=== PATIENT | male | born 1970 | race African-American/Black ===

== ENCOUNTER 2020-07-13 13:56 | Emergency (ER) | payer MEDICAID ==
[~2020-07-13] VITALS: Ht 175.3 cm; Wt 108.8 kg
[2020-07-13] MEDS ORDERED: IBUPROFEN 600MG TABLET PO ONE (15:15)
[2020-07-13] MEDS ORDERED: SODIUM CHLORIDE 0.9% 1,000 ML IV ONE (15:15)
[2020-07-13 18:13] LABS: BASOPHILS % 0.7 % (0.0-2.0); EOSINOPHILS % 2.7 % (0.0-5.0); HEMATOCRIT. 44.6 % (42.0-52.0); LYMPHOCYTES % 39.7 % (20.0-50.0); MEAN CORPUSCULAR HEMOGLOBIN 25.4 pg (28.0-32.0); MEAN CORPUSCULAR VOLUME 75.7 fL (80.0-94.0); MEAN PLATELET VOLUME 8.3 fl (7.4-10.4); MONOCYTES % 8.5 % (2.0-8.0); NEUTROPHILS % 48.4 % (40.0-76.0); PLATELET 263 x1000/uL (130-400); RED CELL DISTRIBUTION WIDTH 15.7 % (11.6-14.6)
[2020-07-13 18:18] LABS: CHLORIDE 106 mEq/L (98-107)
[2020-07-13 18:20] LABS: PROTHROMBIN TIME 10.7 sec (9.6-11.0)
[2020-07-13] MEDS: ALBUTEROL (0.083%) 2.5MG/3ML NEB HHN SCH (18:30)
[2020-07-13] MEDS ORDERED: ALBUTEROL (0.083%) 2.5MG/3ML NEB ONE (18:37)
[2020-07-13 19:59] LABS: CLARITY URINE CLEAR (CLEAR); COLOR URINE YELLOW (YELLOW); KETONES URINE 1+ (NEGATIVE); LEUKOCYTE ESTERASE URINE NEGATIVE (NEGATIVE); NITRITE URINE NEGATIVE (NEGATIVE); OCCULT BLOOD URINE NEGATIVE (NEGATIVE); PROTEIN URINE NEGATIVE (NEGATIVE); SPECIFIC GRAVITY URINE 1.016 (1.005-1.030); UROBILINOGEN URINE 0.2 E.U./dL (0.2-1.0)
[2020-07-13 20:47] VITALS: BP 116/74
== END 2020-07-13 20:48 | disposition home or self-care (01) ==
LOC: ER 14:11
DX: B34.9 Viral infection, unspecified (principal); R10.84 Generalized abdominal pain; R10.9 Unspecified abdominal pain; F31.9 Bipolar disorder, unspecified; E78.00 Pure hypercholesterolemia, unspecified; F20.9 Schizophrenia, unspecified
CPT/HCPCS: 36415; 71045; 80053; 81003; 83605; 85025; 85610; 87040; 87086; 87635; 93005; 94640; 96360; 99285; J7030; Z7610